=== PATIENT | female | born 1990 | race Caucasian/White ===

== ENCOUNTER 2017-08-03 21:32 | Emergency (ER) | payer MEDICARE, MEDICAID, SELFPAY ==
[2017-08-03 21:32] VITALS: BP 117/73; PULSE 97; RESP 16; TEMP 37.4; O2SAT 97; BMI 42.0
[2017-08-03 22:14] VITALS: BP 120/70; PULSE 85; RESP 14; O2SAT 99
[2017-08-03 22:30] LABS: Amphetamine Urine VISTA NEGATIVE (<1000 ng/mL); Barbiturate Urine VISTA NEGATIVE (< 200 ng/mL); Benzodiazepine Urine VISTA NEGATIVE (< 200 ng/mL); Cocaine Urine VISTA NEGATIVE (< 300 ng/mL); Ecstacy Urine VISTA NEGATIVE (< 500 ng/mL); Methadone Urine VISTA NEGATIVE (< 300 ng/mL); PCP Urine VISTA NEGATIVE (< 25 ng/mL); THC Urine VISTA NEGATIVE (< 50 ng/mL); Vista UDS pH Range 7
[2017-08-03 22:30] LABS: Absolute Lymphocyte Count 2.98 X10^3/ul (0.83-4.51); Absolute Neutrophil Count 6.6 X10^3/uL (2.0-7.7); Basophil# 0.03 X10^3/uL; Basophil% 0.3 % (0-1); Eosinophil# 0.16 X10^3/uL; Eosinophils% 1.6 % (0-5); Hematocrit 45.9 % (37-47); Hemoglobin 15.9 g/dl (12.0-15.0); Lymphocyte # 2.98 X10^3/ul (4.0); Lymphocyte % 28.9 % (19-41); Mean Corp Hgb Conc 34.6 g/gl (32-36); Mean Corpuscular Hgb 29.4 pg (27.0-32.0); Mean Corpuscular Volume 84.8 fL (81-99); Mean Platelet Vol. 10.1 fl (6.2-12.0); Monocyte# 0.54 X10^3/uL; Monocyte% 5.2 % (0-10); Neutrophil # 6.59 X10^3/uL (2.7-7.7); Neutrophil % 63.8 % (47-70); Platelet Count 215 K/mm3 (150-450); RBC Distribution Width CV 12.7 % (11.6-14.6); RBC Distribution Width SD 38.8 fl (35.1-43.9); Red Blood Count 5.41 M/mm3 (4.2-5.4); White Blood Count 10.3 K/mm3 (4.4-11.0)
[2017-08-03 22:32] LABS: POSITIVE COUNT NO; POSITIVE DIFFERENTIAL NO; POSITIVE MORPHOLOGY NO
--- NOTE | 2017-08-03 22:44 | ED.DCSUM_ITS ---
- ER Visit Summary Date of Service: 08/03/17 Chief Complaint: [] Suicidal ideation has the urge to cut herself has not done anything to harm herself History of Present Illness: The patient is a 26 F [] depression and suicidal ideation she was just discharged from [facility] after being admitted after drug overdose of propranolol she feels the unabating urged to take an overdose or cut herself, she has not done anything to harm herself today however. She has no head neck chest or abdominal pain she states her outpatient meds are not helping she did drink a few cocktails before coming in she denies illicit drug use, she has no head neck chest or abdominal pain or any complaints in fact she is eating a hamburger as I talk to her Physical Examination: [] She is in no distress head neck chest unremarkable the abdomen obese but soft nontender upper lower extremity unremarkable neurologically she is awake moving all 4 she has cameron of self induced cuts that are old nothing new, she is asking to see the counselors Test Results: [] Emergency Department Course and Treatment: [] All the above we will obtain screening labs and have asked the mental health services to see her for further management disposition, screening labs are pending these will be checked by mental health services Treatment Plan: [] Disposition: [] Pending mental health evaluation Impression: [] Suicidal ideation, urge to cut self, history of same This note was generated with [employer] dictation software. It may contain incorrect words, spelling, and punctuation that were not noted in review of the chart prior to signing ED Disposition - Plan for ED Patient: Chief Complaint: Suicidal Referrals: Care Physician,No Primary [Primary Care Provider] -
[2017-08-03 22:48] LABS: Anion Gap 10 (5-15); BUN 6 mg/dL (7-18); BUN/Creat Ratio 8.2 RATIO (10-20); Calcium,Total 8.9 mg/dL (8.5-10.1); Chloride 106 mmol/L (98-107); Creatinine, Serum 0.73 mg/dL (0.55-1.02); EST Glomerular Filtration Rate 101 mL/min (>60); Est Glom Filt Rate - Afr Amer 122 mL/min (>60); Estimated Creatinine Clearance 103.24 ml/min; Glucose 95 mg/dL (70-110); Potassium 3.9 mmol/L (3.5-5.1); Sodium Level 141 mmol/L (136-145)
[2017-08-03 23:22] VITALS: BP 112/75; PULSE 85; RESP 14; O2SAT 99
[2017-08-04] VITALS (9 sets, daily range): BP systolic 117–145; BP diastolic 72–79; PULSE 88–99; RESP 14–16; O2SAT 95–99
[2017-08-04 00:23] LABS: Pregnancy, Serum, hCG Quali. NEGATIVE Negative (0-9 Nonpreg)
--- NOTE | 2017-08-04 03:50 | EKG12_ITS ---
Test Reason : MHC Blood Pressure : / mmHG Vent. Rate : 095 BPM Atrial Rate : 095 BPM P-R Int : 150 ms QRS Dur : 084 ms QT Int : 356 ms P-R-T Axes : 056 047 028 degrees QTc Int : 447 ms Normal sinus rhythm Nonspecific T wave abnormality Abnormal ECG Confirmed by NICHOLE HERNANDEZ, NENITA ([id number]), restaurant expeditor TILA ESTEVES ([id number]) on 08/06/2017 10:40:36 AM Referred By: ANA Confirmed By:NENITA VARELA MD
[2017-08-04 04:14] LABS: AST(SGOT) 25 U/L (15-37); Alanine Aminotransfer ALT/SGPT 45 U/L (12-78); Alkaline Phosphatase 86 U/L (45-117); Bilirubin, Direct 0.27 mg/dL (0.00-0.30)
[2017-08-04] MEDS: LORazepam 1 MG Tablet PO (05:05)
[2017-08-04] MEDS: Lithium Carbonate 300mg Capsule 450 MG PO (06:45)
[2017-08-04] MEDS: Propranolol 10 MG Tablet 20 MG PO (06:45)
--- NOTE | 2017-08-04 07:05 | ED.RN ---
PHARM DOES NOT HAVE PO GEODON, PT HAS OWN MEDS IN PRESCRIPTION BOTTLES. PER , OKAY FOR PT TO TAKE OWN GEODON. GIVEN 40MG OF GEODON.
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
--- NOTE | 2017-08-04 13:33 | ED.RN ---
MARIA LUISA DAVIS IN ED TO TRANSPORT PT.
== END 2017-08-04 13:36 ==
PROVIDERS: Emergency Provider Emergency Medicine
DX: R45.851 Suicidal ideations (principal); F32.9 Major depressive disorder, single episode, unspecified; E66.9 Obesity, unspecified; Z91.5 Personal history of self-harm; Z72.89 Other problems related to lifestyle; Z79.899 Other long term (current) drug therapy
CPT/HCPCS: 80048; 80076; 80178; 80307; 80320; 84703; 85025; 93005; 99283; G0480

== ENCOUNTER 2023-07-02 12:02 | Emergency (ER) | payer MEDICARE, MEDICAID, SELFPAY ==
[2023-07-02 12:03] VITALS: BP 128/85; PULSE 110; RESP 18; TEMP 35.9; O2SAT 100; BMI 30.1
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
--- NOTE | 2023-07-02 13:07 | CT_ITS ---
INDICATION: Cervical injury EXAMINATION: CT CERVICAL SPINE - CT Spine Cervical W/O Contrast Injection TECHNIQUE: Helically acquired images were obtained of the cervical spine. 2D reformatted images were reviewed. A radiation dose optimization technique was used for this scan. IV Contrast dosage and agent: None. RADIATION DOSAGE (If Supplied By Facility): CTDIvol = ( 28.79 ) mGy, DLP = ( 1428.15 ) mGycm COMPARISON: No relevant prior comparison study available FINDINGS: VERTEBRAE: No fracture or traumatic subluxation. No discrete lytic or blastic abnormality. Normal alignment. Normal craniocervical junction and cervicothoracic junction. DISCS and SPINAL CANAL: Disc heights are preserved. No critical stenosis. NECK SOFT TISSUES: No prevertebral soft tissue swelling. There is no cervical adenopathy. LUNG APICES: Clear. CT/Spine Cervical without Contras IMPRESSION: No evidence of acute cervical spinal fracture or spondylolisthesis. Electronically Signed: Vlad Brunson MD at 13:53 EST ,
--- NOTE | 2023-07-02 13:07 | CT_ITS ---
INDICATION: head injury EXAMINATION: CT BRAIN - CT Head or Brain W/O Contrast Injection TECHNIQUE: Multiple axial images were obtained of the head without intravenous contrast. A radiation dose optimization technique was used for this scan. IV Contrast dosage and agent: None. RADIATION DOSAGE (If Supplied By Facility): CTDIvol = ( 44.99 ) mGy, DLP = ( 1428.15 ) mGycm COMPARISON: No relevant prior comparison study available FINDINGS: BRAIN PARENCHYMA: No intra- or extra-axial hemorrhage. No evidence of acute infarct. No intracranial mass or mass effect. There is preservation of the jett/white matter interface. Posterior fossa structures are unremarkable. CSF SPACES: Appropriate for age. No hydrocephalus. Basal cisterns are patent. CALVARIUM, SKULL BASE, PARANASAL SINUSES AND MASTOID AIR CELLS: Clear. No discrete lytic or blastic abnormalities. ORBITS: Both globes, extraocular muscles, optic nerves and retrobulbar fat appear unremarkable. CT/Brain/Head without Contrast IMPRESSION: No acute intracranial process. Electronically Signed: Vlad Brunson MD at 13:49 EST ,
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
[2023-07-02 14:02] VITALS: RESP 16
[2023-07-02 15:15] VITALS: BP 129/88; PULSE 108; RESP 16; O2SAT 99
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
[2023-07-02 16:00] VITALS: RESP 16
--- NOTE | 2023-07-02 16:03 | NURSING ---
CRISIS IN ER
[2023-07-02 17:37] LABS: Absolute Lymphocyte Count 1.83 X10^3/uL (0.83-4.51); Absolute Neutrophil Count 8.2 X10^3/uL (2.0-7.7); Anion Gap 7 (5-15); BUN 16 mg/dL (7-18); BUN/Creat Ratio 28.6 RATIO (10-20); Basophil# 0.03 X10^3/uL; Basophil% 0.3 % (0-1); Calcium,Total 9.1 mg/dL (8.5-10.1); Chloride 105 mmol/L (98-107); Creatinine, Serum 0.56 mg/dL (0.55-1.02); EST Glomerular Filtration Rate 131 mL/min (>60); Est Glom Filt Rate - Afr Amer 159 mL/min (>60); Estimated Creatinine Clearance 132.51 ml/min; Glucose 116 mg/dL (74-106); Hematocrit 43.6 % (37-47); Hemoglobin 14.7 g/dL (12.0-15.0); Lymphocyte # 1.83 X10^3/ul (0.83-4.51); Lymphocyte % 17.3 % (19-41); Mean Corp Hgb Conc 33.7 g/dL (32-36); Mean Corpuscular Hgb 28.5 pg (27.0-32.0); Mean Corpuscular Volume 84.5 fL (81-99); Mean Platelet Vol. 10.1 fl (6.2-12.0); Monocyte# 0.45 X10^3/uL; Monocyte% 4.2 % (0-10); NRBC Flagged by Analyzer 0 % (0-5); Neutrophil # 8.24 X10^3/uL (2.7-7.7); Neutrophil % 77.8 % (47-70); Platelet Count 220 K/mm3 (150-450); Potassium 3.4 mmol/L (3.5-5.1); RBC Distribution Width CV 12.7 % (11.6-14.6); RBC Distribution Width SD 38.6 fl (35.1-43.9); Red Blood Count 5.16 M/mm3 (4.2-5.4); Sodium Level 135 mmol/L (136-145); White Blood Count 10.6 K/mm3 (4.4-11.0)
[2023-07-02 17:44] LABS: Amphetamine Urine VISTA POSITIVE (<1000 ng/mL); Barbiturate Urine VISTA NEGATIVE (< 200 ng/mL); Benzodiazepine Urine VISTA NEGATIVE (< 200 ng/mL); Cocaine Urine VISTA NEGATIVE (< 300 ng/mL); Ecstacy Urine VISTA POSITIVE (< 500 ng/mL); Methadone Urine VISTA NEGATIVE (< 300 ng/mL); PCP Urine VISTA NEGATIVE (< 25 ng/mL); THC Urine VISTA NEGATIVE (< 50 ng/mL); Vista UDS pH Range 6
--- NOTE | 2023-07-02 18:01 | NURSING ---
FAXED CHART TO CRISIS
[2023-07-02 18:04] LABS: Alcohol, Blood (Medical)-Serum < 3.0 mg/dL; Internal QC Validated? YES +Cl - CLEAR BKGD; Pregnancy, Serum, hCG Quali. NEGATIVE Negative
--- NOTE | 2023-07-02 19:51 | ED.RN ---
REFERRED TO [facility]
[2023-07-02 21:08] VITALS: PULSE 114; RESP 18; TEMP 37; O2SAT 95
--- NOTE | 2023-07-02 23:16 | ED.RN ---
PT ACCEPTED AT [address] [place] [address] [phone] [place] ETA 7AM, TO CALL IF CAN OUTCOURCE.
[2023-07-03] MEDS: LORazepam 0.5 MG Tablet PO (00:02)
[2023-07-03 01:24] VITALS: PULSE 115; RESP 18; O2SAT 99
[2023-07-03 01:24] LABS: Mucous, Urine 0 SEEN /hpf (<or=2+); Red Blood Cells-Urine 0 SEEN /hpf (0-5); White Blood Cells 0 SEEN /hpf (0-5)
[2023-07-03 01:26] LABS: Color, Urine Yellow (Yellow); Glucose, Dipstick Normal (Normal); Ketone-Dipstick 5 mg/dl (Negative); Leukocyte Esterase-Dipstick 25 /ul (Negative); Nitrite-Dipstick Negative (Negative); Occult Blood-Urine 25 /ul (Negative); Protein-Dipstick 15 mg/dl (Negative); Urine Bilirubin Dipstick Negative (Negative); Urine Urobilinogen Normal (Normal)
[2023-07-03 01:32] LABS: Urine Clarity Turbid (Clear)
[2023-07-03 01:36] LABS: Amorphous Sediment 3+; Bacteria 3+ /hpf (None Seen); Squamous Epithelial Cells - UA 5-10 SEEN /hpf (5-10)
[2023-07-03 03:00] VITALS: RESP 16
[2023-07-03 05:00] VITALS: RESP 18
[2023-07-03 07:01] VITALS: RESP 16
== END 2023-07-03 07:07 ==
PROVIDERS: Emergency Medicine; Emergency Provider Emergency Medicine; Referring Provider Emergency Medicine; Visit Provider Emergency Medicine
DX: S09.90XA Unspecified injury of head, initial encounter (principal); Y92.410 Unspecified street and highway as the place of occurrence of the external cause; F17.210 Nicotine dependence, cigarettes, uncomplicated; F32.A Depression, unspecified; R45.851 Suicidal ideations; S40.022A Contusion of left upper arm, initial encounter; V49.88XA Car occupant (driver) (passenger) injured in other specified transport accidents, initial encounter; Z79.899 Other long term (current) drug therapy; F17.290 Nicotine dependence, other tobacco product, uncomplicated
CPT/HCPCS: 70450; 72125; 73090; 73110; 80048; 80307; 80320; 81001; 84703; 85025; 87426; 99285; G0480